=== PATIENT | female | born 1970 | race Caucasian/White ===

== ENCOUNTER 2021-07-30 08:35 | Outpatient (CLI) | payer BC, SELFPAY ==
--- NOTE | 2021-07-30 08:30 | ECG_ITS ---
Measurements Intervals [place] Rate: 72 P: 48 AR: 171 QRS: 22 QRSD: 84 T: 28 QT: 411 QTc: 451 Interpretive Statements SINUS RHYTHM DELAYED PRECORDIAL R/S TRANSITION BORDERLINE T WAVE ABNORMALITY- ANTERIOR LEADS BORDERLINE ECG Electronically Signed On 07-30-2021 10:05:52 [employer] by Mario Flower D.O.
== END 2021-07-30 08:36 | disposition home or self-care (01) ==
PROVIDERS: PCP Internal Medicine; Visit Provider Orthopaedic Surgery
DX: I47.1 Supraventricular tachycardia (principal)
CPT/HCPCS: 93005

== ENCOUNTER 2021-08-01 01:29 | Day surgery (SDC) | payer BC, SELFPAY ==
[2021-07-29 14:54] VITALS: BMI 47.4
--- NOTE | 2021-07-29 15:25 | PC.NURSE ---
Report to the Outpatient Waiting Room, entrance under the green pavilion located off [facility], at time _0600_ on date _08/01/21__. OR Time: _0730 AM___. - You and your visitor will be asked a series of questions to screen for COVID 19 for your protection. - A mask is required within the hospital. - Only one visitor is allowed at this time. Patient visitors will be guided where to wait when not with patient. Preoperative COVID Testing Requirements: No COVID Test needed if: (proof is required; if not received patient will have Rapid Test prior to entry) - Patient has received COVID Vaccine at least 14 days prior to procedure date or - Patient has positive COVID test result within last 90 days of surgery date. COVID Test needed if above criteria is not met If not COVID vaccinated a COVID test must be conducted within 72 hours of surgery and patient is asked to isolate self from time of testing until procedure. You will go to the [facility] for your COVID testing. The [facility] is located at the corner of [address] [facility]. You will only be called if COVID results are positive and your surgeon may reschedule your elective surgery date. Patients may have clear liquids (water, carbonated beverages, clear teas, apple juice) until 3 hours prior to surgery (0430 AM) with a maximum of 20 ounces. - No food from midnight until time of surgery - Infants may have breast milk until 4 hours before surgery, infant formula 6 hours prior to surgery. - Children will be allowed to drink immediately following surgery. If applicable, please bring a bottle or sippy cup to assist with drinking. Juice, water, soda, and popsicles are readily available. For infants on formula, please bring formula the day of surgery. Pacifiers are allowed. Take the following medications with a SIP of water the morning of surgery: N/A Medications to discontinue per physician __PT STATS ALREADY STOPPING ASPIRIN 07/25/21 Date to take last dose Please no make-up, nail slovenian, hairspray, perfume, deodorant, or body powder the day of surgery. No jewelry (including any body piercings) or valuables the day of surgery, leave them at home. Please take a shower or bath the night before, or the morning of, surgery with an antibacterial soap. Wear comfortable, loose fitting clothing. Children are encouraged to wear pajamas. - Jewelry must be removed prior to entering the operating room. Rings and piercings that are not removed may be cut off. - The hospital will not accept responsibility for valuables. - Please leave all valuables, including medications, at home the day of surgery. If you are going home after surgery, a licensed inventory associate and driver must drive you home. - NO public transportation without another adult. - We recommend that an adult stay with you for 24 hours following discharge. - We also recommend that you do not drive, make important decision, drink alcoholic beverages, or take any drugs that were not prescribed by your health care provider for at least 24 hours after your discharge time. For Pediatric surgeries, we recommend two adults accompany the child home (only one inside the building at this time). Follow any additional instructions given to you from your surgeon. Telephone instructions given to ____PT and asked if any additional questions and then verbalized understanding. Patient advised to call surgeon office or pre surgery nurse liaison [phone] if any additional questions.
--- NOTE | 2021-07-30 11:56 | PM.IMHP ---
H&P: HPI History of Present Illness Date/Time: 07/30/21 11:56 Chief Complaint: Right ankle and foot pain Narrative: 51-year-old woman with previous right ankle fracture status post open reduction internal fixation. Now painful over the hardware which is palpable. Also with cyst over the sinus tarsi which causes pain with activity. Unrelieved with conservative care. Review of Systems Review of Systems: All systems reviewed & are unremarkable except as noted in HPI and below Eyes: Eyes: Denies change in vision ENT: Denies hearing loss, Denies neck pain and Denies sore throat Cardiovascular: Cardiovascular: Denies chest pain and Denies dyspnea Respiratory: Respiratory: Denies cough, Denies dyspnea and Denies wheezing Gastrointestinal: Gastrointestinal: Reports as per HPI Genitourinary: Genitourinary: Denies hematuria and Denies dysuria Musculoskeletal: Musculoskeletal: Denies arthralgias, Denies joint swelling and Denies neck pain Allergic/Immunologic: Allergic/Immunologic: Denies wheezing PMFSH Past Medical History Medical History Anemia Anxiety Closed right ankle fracture Ganglion cyst of right foot Gastroesophageal reflux disease IBS (irritable bowel syndrome) Morbid obesity with BMI of 40.0-44.9, adult LISSETH (obstructive sleep apnea) Painful orthopaedic hardware SVT (supraventricular tachycardia) UTI (urinary tract infection) Surgical History Surgical History History of ankle surgery right Hx of appendectomy Hx of exploratory laparotomy Family History Family History Father Acute myocardial infarction Chronic obstructive pulmonary disease Family history of cardiovascular disease Diabetes mellitus Hypertension Prostate carcinoma Mother Cerebrovascular accident Hypertension Family history of arthritis Other Carcinoma of colon Social History Social History Smoking status: Never smoker Second hand tobacco smoke exposure: No Alcohol intake: current Drinks per week: 1 Substance use: never Substance use type: does not use Gender identity (if verbalized by the patient): Female Spiritual care concerns: No Agree to blood products: Yes Meds Home Medications and Allergies Home Medications Medication Instructions Recorded Confirmed Type ferrous sulfate 325 mg PO HS 07/22/19 07/29/21 History metoprolol tartrate 50 mg PO HS 07/22/19 07/29/21 History omeprazole 20 mg PO HS 07/22/19 07/29/21 History sertraline 12.5 mg PO HS 07/22/19 07/29/21 History fexofenadine [Carolin Allergy] 180 mg PO HS 08/26/19 07/29/21 History aspirin [Aspir-81] 81 mg PO HS 07/29/21 07/29/21 History famotidine [Zantac-360 20 mg PO HS 07/29/21 07/29/21 History (famotidine)] montelukast 10 mg HS 07/29/21 07/29/21 History Allergies Allergy/AdvReac Type Severity Reaction Status Date / Time adhesive Allergy Unknown RASH Verified 07/29/21 14:49 codeine Allergy Unknown Hives Verified 07/29/21 14:49 erythromycin base Allergy Unknown Rash Verified 07/29/21 14:49 latex Allergy Unknown Swelling Verified 07/29/21 14:49 of Lip/Tongue/Throat Sulfa (Sulfonamide Allergy Unknown FLU LIKE Verified 07/29/21 14:49 Antibiotics) SYMPTOMS sulfanilamide Allergy Unknown FLU LIKE Verified 07/29/21 14:49 SYMPTOMS Exam Const: General: No confusion Orientation/consciousness: patient oriented x3 and No confusion HENMT: Head: normal to inspection, normocephalic and atraumatic Eyes: Conjunctivae: conjunctivae normal Sclera: sclerae normal Neck: Neck: supple and nontender Chest: Chest palpation & inspection: normal inspection of the chest Resp: Effort & Inspection: normal respiratory effort and no audible wheezes Cardio: Rate: regular rate Rhythm: regular rhythm
--- NOTE | 2021-07-31 15:30 | WPDANESEPPF ---
Anes - Initial Pre Proc Eval Procedure: Operation Date: 08/01/21 07:30 Proposed Procedures p Removal of Hardware Right Ankle, - Christopher Leo MD s Excison of Ganglion Cyst Right Ankle - Christopher Leo MD <Hola Orantes MD - Last Filed: 08/06/21 12:52> Date/Time: 07/31/21 15:30 <Hola Orantes MD - Last Filed: 08/06/21 12:52> Surgeon: Christopher Leo MD <Hola Orantes MD - Last Filed: 08/06/21 12:52> Pre Op Diagnosis: rt painful hardware of ankle,ganglion cyst rt ank <Hola Orantes MD - Last Filed: 08/06/21 12:52> Patient Data Age: 51 Gender: F Height: 1.64 m Weight: 127.27 kg <Hola Orantes MD - Last Filed: 08/06/21 12:52> Allergies Allergy/AdvReac Type Severity Reaction Status Date / Time adhesive Allergy Unknown RASH Verified 08/06/21 08:03 codeine Allergy Unknown Hives Verified 08/06/21 08:03 erythromycin base Allergy Unknown Rash Verified 08/06/21 08:03 latex Allergy Unknown Swelling Verified 08/06/21 08:03 of Lip/Tongue/Throat Sulfa (Sulfonamide Allergy Unknown FLU LIKE Verified 08/06/21 08:03 Antibiotics) SYMPTOMS sulfanilamide Allergy Unknown FLU LIKE Verified 08/06/21 08:03 SYMPTOMS <Hola Orantes MD - Last Filed: 08/06/21 12:52> Home Medications Medication Instructions Recorded Confirmed Type ferrous sulfate 325 mg PO HS 07/22/19 08/06/21 History metoprolol tartrate 50 mg PO HS 07/22/19 08/06/21 History omeprazole 20 mg PO HS 07/22/19 08/06/21 History sertraline 12.5 mg PO HS 07/22/19 08/06/21 History fexofenadine [Carolin Allergy] 180 mg PO HS 08/26/19 08/06/21 History aspirin 81 mg PO HS 07/29/21 08/06/21 History famotidine [Zantac-360 20 mg PO HS 07/29/21 08/06/21 History (famotidine)] montelukast 10 mg HS 07/29/21 08/06/21 History hydrocodone-acetaminophen 1 tablet PO Q6H PRN #30 tablet 08/01/21 08/06/21 Rx hydroxyzine pamoate [Vistaril] 50 mg PO Q6-8H PRN #20 cap 08/01/21 08/06/21 Rx ondansetron 8 mg PO Q8H PRN #20 tablet 08/01/21 08/06/21 Rx sennosides-docusate sodium [Senna 1 tab-cap PO HS #14 tablet 08/01/21 08/06/21 Rx with Docusate Sodium] <Hola Orantes MD - Last Filed: 08/06/21 12:52> Patient hx anesthesia problems: none <Pablito Johnson MD - Last Filed: 08/01/21 07:08> Family hx anesthesia problems: none <Pablito Johnson MD - Last Filed: 08/01/21 07:08> Results Review: All pre-operative results and documents have been reviewed as part of the pre-operative evaluation. <Hola Orantes MD - Last Filed: 08/06/21 12:52> [facility] Past Medical History Medical History: Medical History Anemia Anxiety Closed right ankle fracture Ganglion cyst of right foot Gastroesophageal reflux disease IBS (irritable bowel syndrome) Morbid obesity with BMI of 40.0-44.9, adult LISSETH (obstructive sleep apnea) Painful orthopaedic hardware SVT (supraventricular tachycardia) UTI (urinary tract infection) <Hola Orantes MD - Last Filed: 08/06/21 12:52> Surgical History Surgical History: Surgical History History of ankle surgery right Hx of appendectomy Hx of exploratory laparotomy <Hola Orantes MD - Last Filed: 08/06/21 12:52> Family History Family History: Family History Father Acute myocardial infarction Chronic obstructive pulmonary disease Family history of cardiovascular disease Diabetes mellitus Hypertension Prostate carcinoma Mother Cerebrovascular accident Hypertension Family history of arthritis Other Carcinoma of colon <Hola Orantes MD - Last Filed: 08/06/21 12:52> Social History Social History: Social History Second hand tobacco smoke exposure: Yes Alcohol intake: current Drinks per week:
[2021-08-01] VITALS (12 sets, daily range): BP systolic 116–155; BP diastolic 62–80; PULSE 65–90; RESP 14; TEMP 36.7; O2SAT 94–99
--- NOTE | ~2021-08-01 | XR_ITS ---
XR surgery orthopedic 08/01/2021 09:06 Indication: Removal of ankle hardware Procedure: 3 views of the right ankle. 28 seconds of fluoroscopy. Comparison: 05/07/2021 Findings: There has been interval removal of 2 lag screws at the medial malleolus as well as side mark te and 5 screws from the fibula. Ankle mortise intact. No gross fracture or malalignment. Impression: 1: Interval removal of orthopedic hardware. Anatomic alignment of the right ankle post procedure. Reviewed, dictated and finalized at location A. ATION CONTROL SPECIALIST Impression: 1: Interval removal of orthopedic hardware. Anatomic alignment of the right ank le post procedure.
[2021-08-01] MEDS: ACETAMINOPHEN 500 MG TABLET 1000 MG PO (06:48)
[2021-08-01] MEDS: LACTATED RINGERS 1,000 ML 30 ML IV CONT ×2 (07:12→09:27)
--- NOTE | 2021-08-01 07:18 | WPDHPUPDATE1 ---
History and Physical Update Update Date/Time: 08/01/21 07:18 History and Physical has been reviewed, including an updated exam of the patient. There are NO changes in the patient's condition. Risks, benefits, and alternatives have been discussed and questions answered. Patient agrees to proceed with procedure.
[2021-08-01] MEDS: KETOROLAC 15 MG/ML VIAL (*BKC) IV PUSH (07:20)
[2021-08-01] MEDS: ceFAZolin 3 GM/D5W 100 ML 100 ML IVPB (07:32)
[2021-08-01] MEDS: BUPIVACAINE HCL 0.5% PF 30 ML VIAL INFILTRATE (08:07)
--- NOTE | 2021-08-01 09:43 | P.OP_ITS ---
Procedure Note - Detailed Date of Procedure 08/01/21 Pre-op Diagnosis rt painful hardware of ankle,ganglion cyst rt ank Post-op Diagnosis other (Right ankle painful hardware with lipoma type mass right anterolateral ankle.) Procedure Performed Removal of hardware right ankle. Removal of mass right anterolateral ankle and foot. Surgeon Christopher Leo MD Director Investor Relations commercial escrow assistant Anesthesia general Indications 51-year-old woman status post right ankle fracture. Underwent open reduction internal fixation. Pain now the hardware site as well as a cyst over the anterolateral ankle and sinus tarsi. Presents for removal. Findings 4 x 4 cm mass over the sinus tarsi consistent with lipoma. Description of Procedure Patient identified in the preoperative holding. Informed consent given. Operative extremity marked. Patient received intravenous antibiotics. Patient brought to the operating room where underwent general anesthetic by anesthesia team. Positioned supine on operating room table. Time-out performed confirming the patient, site of the surgery and the plan. Right foot and ankle prepped and draped usual sterile surgical fashion using ChloraPrep skin solution. The foot and ankle were exsanguinated with an Esmarch in calf tourniquet was inflated to 225 mmHg. The previous medial and lateral incisions that were done for the original fracture fixation were utilized. Fifteen blade knife used for the lateral incision and dissection carried down through the fascia. The lateral plate and screws were identified and removed. Bone was debrided with a rongeur. Thorough irrigation. The fascia closed with 2-0 Vicryl interrupted suture. Subcutaneous tissue repaired with 3-0 Monocryl interrupted suture and skin repaired with 4-0 nylon running suture. Medial side addressed similarly. Fifteen blade knife used to incise previous incision. Dissection carried down through the fascia. At the medial malleolus the more posterior screw was identified in easily removed. The anterior screw fractured while removing. The distal portion came out but the more proximal portion was imbedded in bone. We used the broken hardware removal set to grasp onto the remaining portion of the screw and remove this. Screw holes were curetted and thoroughly irrigated with solution. Fascia repaired with 2 Vicryl interrupted suture. Subcutaneous tissue repaired with 3-0 Monocryl interrupted suture and skin repaired with 4-0 nylon running suture. At the anterolateral ankle distal aspect and overlying sinus tarsi the mass was able to be visualized and palpated. Oblique incision with a 15 blade knife made over this. Thin subcutaneous tissue encountered. Then a mass which was mostly lipomatous tissue was identified. This was freed up from the surrounding tissue and removed. This was passed off as specimen. Any bleeding points were coagulated with electrocautery. Wound thoroughly irrigated. The deeper tissue closed with 2 Vicryl interrupted suture. Subcutaneous tissue repaired with 3-0 Monocryl interrupted suture and skin repaired with 4-0 nylon running suture. Sterile dressing applied. The patient was then woken from anesthesia, extubated and taken to the recovery room in stable condition. All sponge, needle, instrument counts were correct at the end of the case. Estimated Blood Loss 10 Tourniquet Time 85 Drains No Packing No Pathology yes (Right foot mass) Complications None Condition stable Disposition PACU
[2021-08-01] MEDS: ONDANSETRON INJ 4 MG/2 ML VIAL IV PUSH (10:08)
--- NOTE | 2021-08-01 10:53 | SUR.PHASEI ---
1020-SATURATIONS VARIABLE WITH DIPS TO 80S WHEN DRIFTING OFF TO SLEEP WITH IMMEDIATE RECOVER TO MID 90S. PT STATES HAS SLEEP APNEA AND USES CPAP. [id number] TO RECLINER IN PACU AREA AND VERBALLY STIMULATED WITH IMMEDIATE IMPROVEMENT OF SATS, CONTINUES TO DOP WHEN DOZING OFF.
[2021-08-01] MEDS: SCOPOLAMINE 1.5 MG PATCH TRANSDERM (11:09)
[2021-08-01] MEDS: oxyCODONE HCL (*CRX) 5 MG TAB IR PO (11:59)
--- NOTE | 2021-08-01 14:46 | SUR.PHASEII ---
NATO REA RN CHARTED OUTPT DISCHARGE TIME, PACU FLUIDS END TIME AND POST-OP EDUCATION UNDER HERNANDEZ LO.
== END 2021-08-01 12:40 | disposition home or self-care (01) ==
PROVIDERS: PCP Internal Medicine; Visit Provider Orthopaedic Surgery
PROC: (CPT 20680; principal; 2021-08-01 07:30)
PROC: (CPT 20680; 2021-08-01 07:30)
DX: T84.84XA Pain due to internal orthopedic prosthetic devices, implants and grafts, initial encounter (principal); Y83.8 Other surgical procedures as the cause of abnormal reaction of the patient, or of later complication, without mention of misadventure at the time of the procedure; D17.23 Benign lipomatous neoplasm of skin and subcutaneous tissue of right leg; G47.33 Obstructive sleep apnea (adult) (pediatric); D64.9 Anemia, unspecified; F41.9 Anxiety disorder, unspecified; K21.9 Gastro-esophageal reflux disease without esophagitis; K58.9 Irritable bowel syndrome, unspecified; I47.1 Supraventricular tachycardia
CPT/HCPCS: 20680; 28039; 88304; A9270; J0690; J1885; J2250; J2270; J2405; J2704; J7120